=== PATIENT | male | born 2000 | race Caucasian/White ===

== ENCOUNTER → 2022-04-25 | Outpatient (CLI) | payer OTHER | LOC: ZCOL.LAB 16:52 | DX: L02.415 Cutaneous abscess of right lower limb (principal) ==

== ENCOUNTER → 2022-05-23 | Outpatient (CLI) | payer OTHER | LOC: ZCOL.LAB 16:12 | DX: L02.415 Cutaneous abscess of right lower limb (principal) ==

== ENCOUNTER → 2024-01-28 | Outpatient (CLI) | payer OTHER ==
[~2024-01-28] MED LIST: Albuterol 0.083% Neb Soln 2.5 MG/3 ML UD IH ONE; Methacholine Vial A (Clear Label Base-Cntrl) IH ONE; Methacholine Vial B (Red Label) 0.0625 MG/ML 3 ML VIAL.NEB IH ONE; Methacholine Vial C (Orange Label) 0.25 MG/ML 3 ML VIAL.NEB IH ONE; Methacholine Vial D (Yellow Label) 1 MG/ML 3 ML VIAL.NEB IH ONE; Methacholine Vial E (Green Label) 4 MG/ML 3 ML VIAL.NEB IH ONE
== END ==
LOC: COL.CARD 10:00
DX: R06.02 Shortness of breath (principal)
CPT/HCPCS: J7674